=== PATIENT | male | born 1940 | race Caucasian/White ===

== ENCOUNTER 2017-11-08 10:31 | Day surgery (SDC) | payer OTHER ==
[2017-11-07 12:02] VITALS: BMI 29.0
[2017-11-08] MEDS ORDERED: ERTAPENEM SODIUM 1 GM VIAL ONE (12:06)
[2017-11-08] MEDS ORDERED: ROCURONIUM BROMIDE 50 MG/5 ML VIAL ONE ×2 (13:36→15:21)
[2017-11-08] MEDS ORDERED: PROPOFOL 20 ML ONE (13:36)
[2017-11-08] MEDS ORDERED: GLYCOPYRROLATE 0.2 MG/1 ML VIAL ONE (13:56)
[2017-11-08] MEDS ORDERED: ERTAPENEM SODIUM 1 GM VIAL IVPB ONE (14:15)
[2017-11-08] MEDS ORDERED: NEOSTIGMINE METHYLSULFATE 0.5 MG/ML - 10 ML MDV ONE ×2 (14:44→16:18)
[2017-11-08] MEDS ORDERED: DEXAMETHASONE SOD PHOSPHATE 4 MG/1 ML VIAL ONE (14:45)
[2017-11-08] MEDS ORDERED: ONDANSETRON 4 MG/2 ML VIAL IVPUSH PRN ×2 (15:34→18:58)
[2017-11-08] MEDS ORDERED: LACTATED RINGERS SOLUTION 1,000 ML IV SCH (15:45)
[2017-11-08] MEDS ORDERED: LIDOCAINE HCL/PF 2% SDV 5ML VIAL ONE (16:40)
[2017-11-08] MEDS ORDERED: ACETAMINOPHEN 1000 MG/100 ML VIAL (NON FORMULARY) IVPB ONE (18:09)
[2017-11-08] MEDS ORDERED: ACETAMINOPHEN INJECTION 100 ML IVPB ONE (18:09)
[2017-11-08] MEDS ORDERED: oxyCODONE HCL 5 MG TABLET PO PRN (18:57)
[2017-11-08] MEDS ORDERED: ACETAMINOPHEN 325 MG TABLET (FP) PO PRN (19:03)
[2017-11-08 19:39] LABS: BASO % 0.1 % (0-2.0); HEMATOCRIT 44.5 % (35.4-49); HEMOGLOBIN 14.7 GM/dL (11.7-16.9); LYMPH % 6.5 % (8-40); MCH 31.4 pg (25.7-33.7); MEAN CELL VOLUME 95.4 fl (80-96); MEAN PLT VOLUME 9.7 fl (7.5-11.1); MONO % 1.7 % (3.8-10.2); NEUT % 91.7 % (42.8-82.8); PLATELET COUNT 222 K/MM3 (134-434); RBC 4.67 M/mm3 (4.00-5.60); RDW 13.8 % (11.9-15.9); WHITE BLOOD COUNT 17.4 K/mm3 (4.0-10.0)
[2017-11-08] MEDS: D5-1/2NS+20 MEQ KCL - 20 MEQ/1,000 ML INFUS.BAG IV SCH (19:40)
--- NOTE | 2017-11-08 20:41 | CONSULT ---
Consult Consult Specialty:: CCM/Pulm Reason for Consultation:: S/p Lap María - History of Present Illness Chief Complaint: Surgical discomfort History of Present Illness: 77yo man with PMHx of CAD s/p CABG, gallstones and chronic cholecistitis now s/ p Laporoscopic cholecystectomy. - Past Medical History Cardio/Vascular: Yes: CAD Renal/: Yes: Renal Calculi (suspected but not confirmed) - Past Surgical History Past Surgical History: Yes: Bypass - Alcohol/Substance Use Hx Alcohol Use: No - Smoking History Smoking history: Never smoked Home Medications - Allergies Allergies/Adverse Reactions: Allergies Allergy/AdvReac Type Severity Reaction Status Date / Time No Known Allergies Allergy Verified 11/08/17 12:15 - Home Medications Home Medications: Ambulatory Orders Isosorbide Mononitrate [Imdur -] 30 mg PO DAILY 11/07/17 Metoprolol Succinate 50 mg PO DAILY 11/07/17 Simvastatin 40 mg PO DAILY 11/07/17 Aspirin [ASA -] 81 mg PO DAILY 11/08/17 Glimepiride 2 mg PO DAILY 11/08/17 Hydrochlorothiazide 25 mg PO DAILY 11/08/17 Potassium Chloride [K-Dur -] 10 meq PO DAILY 11/08/17 Review of Systems - Review of Systems Constitutional: reports: No Symptoms Eyes: reports: No Symptoms HENT: reports: No Symptoms Neck: reports: No Symptoms Cardiovascular: reports: No Symptoms Respiratory: reports: No Symptoms Gastrointestinal: reports: Abdominal Pain Genitourinary: reports: No Symptoms Neurological: reports: No Symptoms Hematology/Lymphatic: reports: No Symptoms Physical Exam Vital Signs: Vital Signs Temperature 97.9 F 11/08/17 19:40 Pulse Rate 99 H 11/08/17 20:00 Respiratory Rate 23 11/08/17 20:00 Blood Pressure 115/67 11/08/17 20:00 O2 Sat by Pulse Oximetry (%) 100 11/08/17 19:40 Constitutional: Yes: No Distress, Calm, Obese Eyes: Yes: WNL, PERRL HENT: Yes: Atraumatic, Normocephalic Neck: Yes: Supple Cardiovascular: Yes: Regular Rate and Rhythm, S1, S2 Respiratory: Yes: Regular Gastrointestinal: Yes: Soft, Abdomen, Obese, Other (non tender) Renal/: Yes: WNL Musculoskeletal: Yes: WNL Edema: No Peripheral Pulses WNL: Yes Wound/Incision: Yes: Clean/Dry, Dressing Dry and Intact, Other (small amt bloody drainage on CAMERON site dressing CAMERON to bulb with small to moderate amt bloody drainage) Neurological: Yes: Alert, Oriented ...Motor Strength: WNL Psychiatric: Yes: WNL Labs: CBC, BMP 11/08/17 18:30 CBC,CMP WBC 17.4 K/mm3 (4.0-10.0) H 11/08/17 18:30 RBC 4.67 M/mm3 (4.00-5.60) 11/08/17 18:30 Hgb 14.7 GM/dL (11.7-16.9) 11/08/17 18:30 Hct 44.5 % (35.4-49) 11/08/17 18:30 MCV 95.4 fl (80-96) 11/08/17 18:30 MCH 31.4 pg (25.7-33.7) 11/08/17 18:30 MCHC 33.0 g/dl (32.0-35.9) 11/08/17 18:30 RDW 13.8 % (11.9-15.9) 11/08/17 18:30 Plt Count 222 K/MM3 (134-434) 11/08/17 18:30 MPV 9.7 fl (7.5-11.1) 11/08/17 18:30 Neutrophils % 91.7 % (42.8-82.8) H 11/08/17 18:30 Lymphocytes % 6.5 % (8-40) L 11/08/17 18:30 Monocytes % 1.7 % (3.8-10.2) L 11/08/17 18:30 Eosinophils % 0.0 % (0-4.5) 11/08/17 18:30 Basophils % 0.1 % (0-2.0) 11/08/17 18:30 POC Glucometer 140 UNITS (80-120) 11/08/17 19:13 Current Medications Acetaminophen (Tylenol -) 650 mg PO Q4H PRN PRN Reason: FEVER Atorvastatin Calcium (Lipitor -) 20 mg PO HS [facility] Hydrochlorothiazide (Hctz -) 25 mg PO DAILY [facility] Potassium Chloride/Dextrose/Sod Cl (D5-1/2ns+20 Meq Kcl -) 20 meq in 1,000 mls @ 100 mls/hr IV ASDIR [facility] Last Admin: 11/08/17 19:40 Dose: 0 mls Insulin Aspart (Novolog Vial Sliding Scale -) 1 vial SQ Q6HPO [facility] Isosorbide Mononitrate (Imdur -) 30 mg PO DAILY [facility] Metoprolol Succinate (Toprol Xl -) 50 mg PO DAILY [facility] Morphine Sulfate (Morphine Injection -) 2 mg IVPB Q3H PRN Ondansetron HCl (Zofran Injection) 4 mg IVPUSH Q6H PRN PRN Reason: NAUSEA AND/OR VOMITING Ondansetron HCl (Zofran Injection) 4 mg IVPUSH Q6H PRN PRN Reason: NAUSEA AND/OR VOMITING Oxycodone HCl (Roxicodone -) 5 mg PO Q4H PRN Potassium Chloride (K-Dur -) 10 meq PO DAILY [facility] Ranitidine HCl (Zantac -) 150 mg PO BID [facility] Vital Signs Period Temp Pulse Resp BP Sys/Morgan Pulse Ox Last 24 Hr 97.9 F-98.6 F 57-99 16-23 91-123/43-67 97-100 Problem List - Problems (1) History of laparoscopic cholecystectomy Code(s): Z98.890 - OTHER SPECIFIED POSTPROCEDURAL STATES; Z90.49 - ACQUIRED ABSENCE OF OTHER SPECIFIED PARTS OF DIGESTIVE TRACT Assessment/Plan 77yo man with PMHx CAD s/p CABG, gallstones now s/p laporoscopic cholecystectomy. Plan: -Post-op care as per surgical team -Monitor CAMERON drain output and fluid -Monitor incision sites for bleeding , signs of dehiscence and infection -NPO x meds for now -PO intake as per surgical team. -Incentive spirometer q1h -O2 support as needed for O2 sat>92% -Cont CAD, HLD meds and regimen -Monitor UOP and BMP -Adequate hydration -Replete electrolytes -Pain management -DVT and GI prophylaxis Val Zepeda, ISAIAH CC time 35mins
[2017-11-08] MEDS ORDERED: morphine CARPU-JECT 10 MG/1 ML DISP.SYRIN IVPB PRN (20:46)
[2017-11-08] MEDS ORDERED: ATORVASTATIN CA 20 MG TABLET (FP) PO SCH (22:00)
[2017-11-08] MEDS: RANITIDINE HCL 150 MG TABLET (FP) PO SCH (22:19)
[2017-11-08 22:44] LABS: HEMATOCRIT 43.8 % (35.4-49); HEMOGLOBIN 14.7 GM/dL (11.7-16.9); MCH 31.8 pg (25.7-33.7); MCHC 33.6 g/dl (32.0-35.9); MEAN CELL VOLUME 94.6 fl (80-96); MEAN PLT VOLUME 9.4 fl (7.5-11.1); PLATELET COUNT 196 K/MM3 (134-434); RBC 4.63 M/mm3 (4.00-5.60); RDW 13.7 % (11.9-15.9); WHITE BLOOD COUNT 10.6 K/mm3 (4.0-10.0)
[2017-11-09] MEDS: INSULIN SLIDING SCALE (NOVOLOG) 1 VIAL SQ SCH ×2 (00:45→12:00)
[2017-11-09 06:20] LABS: HEMATOCRIT 41.7 % (35.4-49); HEMOGLOBIN 13.9 GM/dL (11.7-16.9); MCH 31.9 pg (25.7-33.7); MCHC 33.3 g/dl (32.0-35.9); MEAN CELL VOLUME 95.7 fl (80-96); MEAN PLT VOLUME 9.7 fl (7.5-11.1); PLATELET COUNT 204 K/MM3 (134-434); RBC 4.35 M/mm3 (4.00-5.60); RDW 13.7 % (11.9-15.9)
--- NOTE | 2017-11-09 08:50 | OP ---
DATE OF OPERATION: 11/08/2017 PREOPERATIVE DIAGNOSIS: Chronic cholecystitis/cholelithiasis/possible porcelain gallbladder. POSTOPERATIVE DIAGNOSIS: Chronic cholecystitis/cholelithiasis/possible porcelain gallbladder. PROCEDURE: Laparoscopic cholecystectomy. OPERATING SURGEON: Papo Oakes M.D. SWITCH COUPLER: Artur Corrales M.D. ANESTHESIA: Radha Soliman M.D. (general) HISTORY: A 77-year-old man who presents for laparoscopic removal of his gallbladder for chronic cholecystitis and cholelithiasis. 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 Gallbladder obviously very thickened, with significant signs of chronicity and underlying cholelithiasis. Patient also with significant medical history including cardiac disease, hypertension, and diabetes. Indications, alternatives, possible complications reviewed, consent obtained. DESCRIPTION OF PROCEDURE: With the patient in supine position under general anesthesia, abdomen prepped and draped in sterile fashion using chlorhexidine. Small transverse infraumbilical incision was made just beneath an obvious umbilical hernia. The incision was deepened into the subcutaneous space. Veress needle was inserted into the abdominal cavity through the infraumbilical wound. The abdominal cavity was insufflated to an adequate pressure using CO2 gas. The Veress needle was removed, an 11-mm trocar port placed through the infraumbilical wound. The camera lens passed through this port and the intraabdominal cavity visualized. Under direct vision, two 5-mm anterolateral ports were placed through which clamps were placed to maintain traction on the gallbladder and aid in the dissection. An 11-mm port was placed in the epigastrium through which the operating instruments were passed. A limited exploration of the abdomen revealed a very thickened gallbladder with multiple adhesions about the gallbladder itself. The gallbladder was pale throughout. It was rubbery and very difficult to grasp. It was obviously densely adherent to the liver with loss of plane posteriorly as well. Operative findings did not suggest at least complete porcelainization of the gallbladder. In order to grasp the gallbladder, the gallbladder was decompressed with a Veress needle. Ultimately, the gallbladder was grasped in position. The peritoneum of the hepatoduodenal ligament was incised. The cystic duct and cystic artery were identified. The cystic duct, bile duct junction was noted. The cystic duct was clipped proximally, distally and divided. The artery was managed similarly. The gallbladder was removed from the gallbladder bed using the electrocautery. As recognized, the gallbladder was densely adherent to the liver secondary to chronicity. Ultimately the gallbladder was removed. It was then placed in a retrieval bag. Inspection of the liver bed revealed a large bleeding sinusoid. Despite attempts to control the sinusoid with electrocautery, this was unsuccessful. Ultimately, after spending significant time and probably a blood loss up to 500 mL, the sinusoid was controlled using a combination of cautery, ligature, and FloSeal. The abdomen was then irrigated and irrigant retrieved. A Herbert-Jackson drain was placed in the subhepatic space and left to exit through one of the 5-mm trocar sites at the level of the right abdominal wall where it was tacked to the skin with 3- 0 nylon suture material. Final inspection of the abdomen revealed hemostasis. All ports were then removed under direct visualization. No bleeding identified at the port sites. Ultimately, the gallbladder was delivered through the infraumbilical wound in its retrieval bag. The gallbladder was very large and thickened, and the transverse infraumbilical wound had to be extended in both directions in order to facilitate extraction of the large thickened organ. Ultimately, the pneumoperitoneum was allowed to escape. The fascia at the infraumbilical region was closed using interrupted 0 Vicryl sutures. Given the proximity of the umbilical hernia and the very thin abdominal wall, patient will likely require some form of intervention at the umbilicus in the future. At the end of the procedure, needle and instrument count correct. ESTIMATED BLOOD LOSS: 500 mL. SPECIMENS: Gallbladder. DRAINS: One CAMERON. Patient tolerated the procedure and the procedure was terminated. Radha [id number] cc: Elroy Aguilar MD MTDD
[2017-11-09 09:35] LABS: ALBUMIN 3.1 g/dl (3.4-5.0); ALK PHOS 64 U/L (45-117); ANION GAP 6 (8-16); BILIRUBIN,TOTAL 0.5 mg/dL (0.2-1.0); BLOOD UREA NITROGEN 21 mg/dL (7-18); CALCIUM 7.9 mg/dL (8.5-10.1); CHLORIDE 103 mmol/L (98-107); CO2 27 mmol/L (21-32); CREATININE 1.2 mg/dL (0.7-1.3); GLUCOSE,RANDOM 152 mg/dL (74-106); PHOSPHOROUS 2.4 mg/dL (2.5-4.9); POTASSIUM 4.3 mmol/L (3.5-5.1); SGOT/AST 211 U/L (15-37); SGPT/ALT 190 U/L (12-78); SODIUM 136 mmol/L (136-145); TOT PROT 5.9 g/dl (6.4-8.2)
[2017-11-09] MEDS: RANITIDINE HCL 150 MG TABLET (FP) PO SCH (09:53)
[2017-11-09] MEDS: D5-1/2NS+20 MEQ KCL - 20 MEQ/1,000 ML INFUS.BAG IV SCH (09:55)
[2017-11-09] MEDS ORDERED: POTASSIUM CHLORIDE TABS 10 MEQ TABLET.ER (FP) PO SCH (10:00)
[2017-11-09] MEDS ORDERED: HYDROCHLOROTHIAZIDE 25 MG TABLET (FP) PO SCH (10:00)
[2017-11-09] MEDS ORDERED: METOPROLOL SUCCINATE 50 MG TAB.SR.24H (FP) PO SCH (10:00)
[2017-11-09] MEDS ORDERED: ISOSORBIDE MONONITRATE 30 MG TAB.SR.24H (FP) PO SCH (10:00)
--- NOTE | 2017-11-09 11:42 | PN ---
Progress Note (short form) - Note Progress Note: Anesthesia POD#1 S/P Laproscopic Cholecystectomy under [place] VSS,some drop in Hbbut patient is doing well,Drinking liquids. Sitting in the bed.no N/V. Pain is under control. Radha Soliman MD.
--- NOTE | 2017-11-09 11:54 | PN ---
Teaching Attending Note Name of Resident: Penny Clay ATTENDING PHYSICIAN STATEMENT I saw and evaluated the patient. I reviewed the resident's note and discussed the case with the resident. I agree with the resident's findings and plan as documented. SUBJECTIVE: Patient seen and examined in the ICU. Awake and alert. Denies abdominal pain. No CP or SOB. Serosanguinous drainage. Intake & Output 11/06/17 11/07/17 11/08/17 11/09/17 23:59 23:59 23:59 23:59 Intake Total 4000 1084 Output Total 2790 430 Balance 1210 654 Weight 185 lb 185 lb Last Vital Signs Temp Pulse Resp BP Pulse Ox 97.8 F 69 15 116/66 96 11/09/17 10:00 11/09/17 10:38 11/09/17 10:00 11/09/17 10:00 11/09/17 10:38 Active Medications Acetaminophen (Tylenol -) 650 mg PO Q4H PRN PRN Reason: FEVER Last Admin: 11/09/17 00:17 Dose: 650 mg Atorvastatin Calcium (Lipitor -) 20 mg PO HS [facility] Last Admin: 11/08/17 22:20 Dose: 20 mg Hydrochlorothiazide (Hctz -) 25 mg PO DAILY [facility] Last Admin: 11/09/17 09:53 Dose: 25 mg Potassium Chloride/Dextrose/Sod Cl (D5-1/2ns+20 Meq Kcl -) 20 meq in 1,000 mls @ 100 mls/hr IV ASDIR [facility] Last Admin: 11/09/17 09:55 Dose: 100 mls/hr Insulin Aspart (Novolog Vial Sliding Scale -) 1 vial SQ Q6HPO [facility] Last Admin: 11/09/17 00:45 Dose: Not Given Isosorbide Mononitrate (Imdur -) 30 mg PO DAILY [facility] Last Admin: 11/09/17 09:53 Dose: 30 mg Metoprolol Succinate (Toprol Xl -) 50 mg PO DAILY [facility] Last Admin: 11/09/17 09:53 Dose: 50 mg Morphine Sulfate (Morphine Injection -) 2 mg IVPB Q3H PRN Last Admin: 11/08/17 22:18 Dose: 2 mg Ondansetron HCl (Zofran Injection) 4 mg IVPUSH Q6H PRN PRN Reason: NAUSEA AND/OR VOMITING Ondansetron HCl (Zofran Injection) 4 mg IVPUSH Q6H PRN PRN Reason: NAUSEA AND/OR VOMITING Oxycodone HCl (Roxicodone -) 5 mg PO Q4H PRN Last Admin: 11/09/17 00:18 Dose: 5 mg Potassium Chloride (K-Dur -) 10 meq PO DAILY [facility] Ranitidine HCl (Zantac -) 150 mg PO BID [facility] Last Admin: 11/09/17 09:53 Dose: 150 mg Constitutional: Yes: Awake and alert, NAD Eyes: Yes: WNL, PERRL HENT: Yes: Atraumatic, Normocephalic Neck: Yes: Supple Cardiovascular: Yes: Regular Rate and Rhythm, S1, S2 Respiratory: Yes: Regular Gastrointestinal: Yes: Soft, Abdomen, Obese, Intact CAMERON drain with serosanguinous drainage Renal/: Yes: WNL Musculoskeletal: Yes: WNL Edema: No Peripheral Pulses WNL: Yes Wound/Incision: Yes: Clean/Dry, Dressing Dry and Intact, Other (small amt bloody drainage on CAMERON site dressing CAMERON to bulb with small to moderate amount bloody drainage) Neurological: Yes: Alert, Oriented ...Motor Strength: WNL Psychiatric: Yes: WNL Labs: Laboratory Results - last 24 hr 11/08/17 11/08/17 11/08/17 10:45 11:48 15:25 WBC RBC Hgb Hct MCV MCH MCHC RDW Plt Count MPV Neutrophils % Lymphocytes % Monocytes % Eosinophils % Basophils % Sodium Potassium Chloride Carbon Dioxide Anion Gap BUN Creatinine Creat Clearance w eGFR POC Glucometer 118 Random Glucose Calcium Phosphorus Magnesium Total Bilirubin AST ALT Alkaline Phosphatase Total Protein Albumin Blood Type O POSITIVE O POSITIVE Antibody Screen Negative Cancelled 11/08/17 11/08/17 11/08/17 18:30 19:13 22:20 WBC 17.4 H 10.6 H D RBC 4.67 4.63 Hgb 14.7 14.7 Hct 44.5 43.8 MCV 95.4 94.6 MCH 31.4 31.8 MCHC 33.0 33.6 RDW 13.8 13.7 Plt Count 222 196 MPV 9.7 9.4 Neutrophils % 91.7 H Lymphocytes % 6.5 L Monocytes % 1.7 L Eosinophils % 0.0 Basophils % 0.1 Sodium Potassium Chloride Carbon Dioxide Anion Gap BUN Creatinine Creat Clearance w eGFR POC Glucometer 140 Random Glucose Calcium Phosphorus Magnesium Total Bilirubin AST ALT Alkaline Phosphatase Total Protein Albumin Blood Type Antibody Screen 11/09/17 11/09/17 11/09/17 01:14 05:15 08:59 WBC 12.0 H RBC 4.35 Hgb 13.9 Hct 41.7 MCV 95.7 MCH 31.9 MCHC 33.3 RDW 13.7 Plt Count 204 MPV 9.7 Neutrophils % Lymphocytes % Monocytes % Eosinophils % Basophils % Sodium 136 Potassium 4.3 Chloride 103 Carbon Dioxide 27 Anion Gap 6 L BUN 21 H Creatinine 1.2 Creat Clearance w eGFR 58.40 POC Glucometer 215.18778 Random Glucose 152 H Calcium 7.9 L Phosphorus 2.4 L Magnesium 2.0 Total Bilirubin 0.5 AST 211 H ALT 190 H Alkaline Phosphatase 64 Total Protein 5.9 L Albumin 3.1 L Blood Type Antibody Screen 11/09/17 10:29 WBC RBC Hgb Hct MCV MCH MCHC RDW Plt Count MPV Neutrophils % Lymphocytes % Monocytes % Eosinophils % Basophils % Sodium Potassium Chloride Carbon Dioxide Anion Gap BUN Creatinine Creat Clearance w eGFR POC Glucometer 179.09671 Random Glucose Calcium Phosphorus Magnesium Total Bilirubin AST ALT Alkaline Phosphatase Total Protein Albumin Blood Type Antibody Screen Problem List - Problems (1) History of laparoscopic cholecystectomy Code(s): Z98.890 - OTHER SPECIFIED POSTPROCEDURAL STATES; Z90.49 - ACQUIRED ABSENCE OF OTHER SPECIFIED PARTS OF DIGESTIVE TRACT Assessment/Plan S/P laporoscopic cholecystectomy. Large sinusoidal bleeding Gallstones CAD CABG Plan: Follow H&H Normal transfusion thresholds Monitor wound site PO per surgery O2 as needed Incentive Spirometry Strict I & O IVF Floor when OK with surgery Dr Resendiz Critical care time spent in reviewing chart, evaluating patient and formulating plan - 38 minutes.
--- NOTE | 2017-11-09 12:39 | PN ---
Progress Note (short form) - Note Progress Note: surgery pt seen and examined. feels well. tolerating liquids. afebrile. vss abd- soft, obese, incision clean, meeta 30 sanguinous Laboratory Tests 11/08/17 11/08/17 11/09/17 18:30 22:20 05:15 Hgb 14.7 14.7 13.9 Plan- surgically stable for d/c. regular diet. Hold aspirin till Monday. follow with Dr. Oakes Janett for drain removal. this is a 23 hour observation and not a full admission.
--- NOTE | 2017-11-09 12:56 | PN ---
Physical Exam: SUBJECTIVE: Did well overnight, sanguineous drainage from the CAMERON drain but tolerating full liquids this AM. OBJECTIVE: Vital Signs Period Temp Pulse Resp BP Sys/Morgan Pulse Ox Last 24 Hr 97.6 F-98.6 F 57-99 14-23 91-139/43-77 96-100 GENERAL: The patient is awake, alert, and fully oriented, in no acute distress. HEAD: Normal with no signs of trauma. EYES: PERRL, extraocular movements intact, sclera anicteric, conjunctiva clear. No ptosis. ENT: Ears normal, nares patent, oropharynx clear without exudates, moist mucous membranes. NECK: Trachea midline, full range of motion, supple. LUNGS: Breath sounds equal, clear to auscultation bilaterally, no wheezes, no crackles, no accessory muscle use. HEART: Regular rate and rhythm, S1, S2 without murmur, rub or gallop. ABDOMEN: distended, tympanitic, slightly tender over surgical site, normoactive bowel sounds, no guarding, no rebound, no hepatosplenomegaly, no masses. Surgical site C/D/I EXTREMITIES: 2+ pulses, warm, well-perfused, no edema. NEUROLOGICAL: Cranial nerves II through XII grossly intact. Normal speech, gait not observed. PSYCH: Normal mood, normal affect. SKIN: Warm, dry, normal turgor, no rashes or lesions noted Laboratory Results - last 24 hr 11/08/17 11/08/17 11/08/17 10:45 11:48 15:25 WBC RBC Hgb Hct MCV MCH MCHC RDW Plt Count MPV Neutrophils % Lymphocytes % Monocytes % Eosinophils % Basophils % Sodium Potassium Chloride Carbon Dioxide Anion Gap BUN Creatinine Creat Clearance w eGFR POC Glucometer 118 Random Glucose Calcium Phosphorus Magnesium Total Bilirubin AST ALT Alkaline Phosphatase Total Protein Albumin Blood Type O POSITIVE O POSITIVE Antibody Screen Cancelled 11/08/17 11/08/17 11/08/17 18:30 19:13 22:20 WBC 17.4 H 10.6 H D RBC 4.67 4.63 Hgb 14.7 14.7 Hct 44.5 43.8 MCV 95.4 94.6 MCH 31.4 31.8 MCHC 33.0 33.6 RDW 13.8 13.7 Plt Count 222 196 MPV 9.7 9.4 Neutrophils % 91.7 H Lymphocytes % 6.5 L Monocytes % 1.7 L Eosinophils % 0.0 Basophils % 0.1 Sodium Potassium Chloride Carbon Dioxide Anion Gap BUN Creatinine Creat Clearance w eGFR POC Glucometer 140 Random Glucose Calcium Phosphorus Magnesium Total Bilirubin AST ALT Alkaline Phosphatase Total Protein Albumin Blood Type Antibody Screen 11/09/17 11/09/17 11/09/17 01:14 05:15 08:59 WBC 12.0 H RBC 4.35 Hgb 13.9 Hct 41.7 MCV 95.7 MCH 31.9 MCHC 33.3 RDW 13.7 Plt Count 204 MPV 9.7 Neutrophils % Lymphocytes % Monocytes % Eosinophils % Basophils % Sodium 136 Potassium 4.3 Chloride 103 Carbon Dioxide 27 Anion Gap 6 L BUN 21 H Creatinine 1.2 Creat Clearance w eGFR 58.40 POC Glucometer 215.59913 Random Glucose 152 H Calcium 7.9 L Phosphorus 2.4 L Magnesium 2.0 Total Bilirubin 0.5 AST 211 H ALT 190 H Alkaline Phosphatase 64 Total Protein 5.9 L Albumin 3.1 L Blood Type Antibody Screen 11/09/17 10:29 WBC RBC Hgb Hct MCV MCH MCHC RDW Plt Count MPV Neutrophils % Lymphocytes % Monocytes % Eosinophils % Basophils % Sodium Potassium Chloride Carbon Dioxide Anion Gap BUN Creatinine Creat Clearance w eGFR POC Glucometer 179.15005 Random Glucose Calcium Phosphorus Magnesium Total Bilirubin AST ALT Alkaline Phosphatase Total Protein Albumin Blood Type Antibody Screen Active Medications Generic Name Dose Route Start Last Admin Trade Name Freq PRN Reason Stop Dose Admin Acetaminophen 650 mg 11/08/17 19:03 11/09/17 00:17 Tylenol - PO 650 mg Q4H PRN Administration FEVER Atorvastatin Calcium 20 mg 11/08/17 22:00 11/08/17 22:20 Lipitor - PO 20 mg HS [facility] Administration Hydrochlorothiazide 25 mg 11/09/17 10:00 11/09/17 09:53 Hctz - PO 25 mg DAILY [facility] Administration Potassium Chloride/Dextrose/Sod Cl 20 meq in 1,000 mls @ 100 mls/hr 11/08/17 19:00 11/09/17 09:55 D5-1/2ns+20 Meq Kcl - IV 100 mls/hr ASDIR [facility] Administration Insulin Aspart 1 vial 11/09/17 00:00 11/09/17 12:00 Novolog Vial Sliding Scale - SQ Not Given Q6HPO [facility] Isosorbide Mononitrate 30 mg 11/09/17 10:00 11/09/17 09:53 Imdur - PO 30 mg DAILY [facility] Administration Metoprolol Succinate 50 mg 11/09/17 10:00 11/09/17 09:53 Toprol Xl - PO 50 mg DAILY [facility] Administration Morphine Sulfate 2 mg 11/08/17 20:46 11/08/17 22:18 Morphine Injection - IVPB 2 mg Q3H PRN Administration Ondansetron HCl 4 mg 11/08/17 15:34 Zofran Injection IVPUSH Q6H PRN NAUSEA AND/OR VOMITING Ondansetron HCl 4 mg 11/08/17 18:58 Zofran Injection IVPUSH Q6H PRN NAUSEA AND/OR VOMITING Oxycodone HCl 5 mg 11/08/17 18:57 11/09/17 00:18 Roxicodone - PO 5 mg Q4H PRN Administration Potassium Chloride 10 meq 11/09/17 10:00 K-Dur - PO DAILY [facility] Ranitidine HCl 150 mg 11/08/17 22:00 11/09/17 09:53 Zantac - PO 150 mg BID [facility] Administration ASSESSMENT/PLAN: 77 year old male POD 1 s/p cholecystectomy with minimal sanguineous drainage from CAMERON drain under ICU observation for noted large hepatic sinusoidal bleed during operation. Neuro: #Pain: - 2Mg Morphine IV Q3H PRN - 5Mg PO Q4H PRN - Doing well with minimal PRNs CV: - No sign of bleeding with stable H/H and vitals - Continue home HCTZ, IMDUR, Metoprolol GI: - incision C/D/I - stable to DC per surgery - follow up on Monday for CAMERON drain removal FEN: -tolerating liquids PPX: - SCDs - Eating Dispo: - Can go home now per surgery Visit type - Emergency Visit Emergency Visit: No - New Patient This patient is new to me today: No - Critical Care Critical Care patient: Yes Total Critical Care Time (in minutes): 35 Critical Care Statement: The care of this patient involved high complexity decision making to prevent further life threatening deterioration of the patient 's condition and/or to evaluate & treat vital organ system(s) failure or risk of failure. - Discharge Referral Referred to [facility] Med P.C.: No
[2017-11-09 16:04] VITALS: BP 114/74; PULSE 71; TEMP 97.9
--- NOTE | 2017-11-10 15:47 | PATH ---
Surgical Pathology Report Patient Name: MEET PIMENTEL Med. Rec. #: [id number] /Age/Gender: 1940 (Age: 77) / M Account: [id number] Location: AMBULATORY SURG Taken: 11/08/2017 Received: 11/09/2017 Reported: 11/10/2017 Physicians: Papo Oakes M.D. Specimen(s) Received GALLBLADDER Clinical History Calculus of gallbladder with chronic cholecystitis without obstruction Final Diagnosis GALLBLADDER, CHOLECYSTECTOMY: CHRONIC CHOLECYSTITIS WITH CALCIFICATION AND OSSEOUS METAPLASIA, AND CHOLELITHIASIS. Electronically Signed Davey Machado M.D. Gross Description Received in formalin, labeled "gallbladder," is a 10.5 x 5.5 x 4.8 cm. gallbladder with a 0.6 cm. in length portion of cystic duct attached. The outer surface is light ramirez and varies from smooth to shaggy. The lumen contains brown, gelatinous bile as well as a 1.2 cm in greatest dimension white, ovoid cholelith. The mucosa is eroded. The wall of the gallbladder is focally calcified and averages 0.2 cm. in thickness. Lining Feller sections are submitted in one cassette, following decalcification. 11/09/201711/09/2017
== END 2017-11-09 18:04 | disposition home or self-care (01) ==
LOC: JASUSAT 10:31 → JICU 19:40 → JASUSAT 11-09 18:04
PROVIDERS: ATTEND Surgery
PROC: 0FT44ZZ Resection of Gallbladder, Percutaneous Endoscopic Approach (ICD-10-PCS; principal; 2017-11-08 12:00)
DX: K80.10 Calculus of gallbladder with chronic cholecystitis without obstruction (principal)
CPT/HCPCS: 36415; 80053; 82962; 83735; 84100; 85025; 85027; 86850; 86900; 86901; 88304-TC; 88311-TC; 94010; 94760